=== PATIENT | male | born 1985 | race Caucasian/White ===

== ENCOUNTER → 2016-12-04 | Outpatient (CLI) | payer OTHER ==
--- NOTE | 2016-12-04 13:43 | KCIC ---
PROCEDURE Bone mineral density scan dated 12/04/2016. HISTORY Multiple foot fractures. Evaluate for osteopenia. TECHNIQUE Routine BMD performed. COMPARISON None FINDINGS Bone Density: -BMD: (g/cm2) - AP Spine Total (L1-L4)..........1.043 - Total left Hip.................0.871 T-Score: - AP Spine Total (L1-L4).........-0.4 - Total left Hip.................-1.1 Z-Score: - AP Spine Total (L1-L4)..........-0.4 - Total left Hip.................-1.2 World Health Organization criteria for BMD interpretation classify patients as Normal (T-score at or above -1.0), Osteopenic (T-score between -1.0 and -2.5), or Osteoporotic (T-score at or below -2.5). IMPRESSION Bone mineral density values in the left femur correlate with osteopenia. The values in the lumbar spine are within the range of normal. Electronically signed by: Cuong Boogie (Dec 04, 2016 13:41:38)
== END | disposition home or self-care (01) ==
LOC: KCIC DEXA 12:24
PROVIDERS: ATTEND Podiatrist Foot & Ankle Surgery
DX: S92.902A Unspecified fracture of left foot, initial encounter for closed fracture (principal); S92.901A Unspecified fracture of right foot, initial encounter for closed fracture; M85.88 Other specified disorders of bone density and structure, other site
CPT/HCPCS: 77080